=== PATIENT | female | born 1945 | race Caucasian/White ===

== ENCOUNTER → 2017-06-13 | Outpatient (CLI) | payer MEDICARE, OTHER ==
[~2017-06-13] MED LIST: CALC600T57 PO; COUM1TAB17 PO; COUM2.5T17 PO; FISH100049 PO; IBUP200C10 PO; LIPI10TA PO; MULT1TAB15 PO; PANTANASE; PERC5TAB12 PO; SYST1SOL OU; TYLE500T78 PO
--- NOTE | 2017-06-13 09:13 | REPMRS ---
Patient History The patient states she has not had a clinical breast exam in over a year. Patient is postmenopausal and has history of skin cancer at age 62. Family history of colorectal cancer in mother at age 50 or over, breast cancer in maternal aunt at age 50 or over, and colorectal cancer in maternal uncle at age 50 or over. Benign ultrasound-guided FNA biopsy of the left breast, 1999. Benign excisional biopsy of the left breast, 1978. Digital Woman Screen Mammo: June 13, 2017 - Exam #: [id number] Bilateral CC and MLO view(s) were taken. Technologist: Kimberly Crawford, Technologist Prior study comparison: June 12, 2016, digital woman screen mammo performed at [facility]. June 10, 2015, digital woman screen mammo performed at [facility]. FINDINGS: The breast tissue is heterogeneously dense. This may lower the sensitivity of mammography. There has been no change in the appearance of the mammogram from the prior studies. There is a moderate amount of residual fibroglandular tissue which is fairly symmetric. There is no interval development of dominant mass, areas of architectural distortion, or clustered microcalcification typical of malignancy. ASSESSMENT: BI-RADS/ACR category 1 mammogram. Negative. Recommendation Routine screening mammogram in 1 year (for women over age 40). This mammogram was interpreted with the aid of an FDA-approved computer-aided dectection system. Electronically Signed By: Wally Almeida MD 06/13/17 0912
--- NOTE | 2017-06-14 10:39 | DEXA ---
AP SPINE L1 - L4 0.965 -1.9 -0.2 LT FEMUR TOTAL 0.712 -2.3 -0.9 RT FEMUR TOTAL right hip replacement. TOTAL BODY TOTAL OTHER DUAL FEMUR FRAX* ASSESSMENT Risk factors: 10 year probability of fracture Major osteoporotic fracture % Hip fracture % COMMENTS: There is low bone density of the spine. There is low bone density of the left hip. The decreased density of the spine does represent a significant change. The decreased density of the left hip does represent a significant change. The density of the spine has decreased 14.7% since the initial exam on 2001. The spine density has decreased 5.5% since the most recent exam on 06/10/2015. The density of the left hip has decreased 19.6% since the initial exam on 2001. The density of the left hip has decreased 4.9% since the most recent exam on . FOLLOW-UP: Recommendation for the next bone density exam: 2 years. MAYITO
== END ==
LOC: M WHC 07:27
PROVIDERS: ATTEND Family Medicine
DX: Z12.31 Encounter for screening mammogram for malignant neoplasm of breast (principal); M85.80 Other specified disorders of bone density and structure, unspecified site
CPT/HCPCS: 77080; G0202

== ENCOUNTER 2017-07-02 06:59 | Day surgery (SDC) | payer MEDICARE, OTHER ==
[~2017-07-02] VITALS: Ht 152.4 cm; Wt 59.0 kg
[2017-07-02] MEDS ORDERED: LR 1,000 ML IV SCH (08:00)
[2017-07-02] MEDS ORDERED: PROPOFOL 200 MG/20 ML VIAL As Ordered ONE (10:39)
[2017-07-02] MEDS ORDERED: LIDOCAINE 2% INJ 100 MG/5 ML SDV (FOR ANES.) As Ordered ONE (10:39)
--- NOTE | 2017-07-02 11:11 | ROOR ---
Patient Name: Marita Bishop Procedure Date: 07/02/2017 10:32 AM Date of : 1945 Age: 71 Room: [facility] Gender: Female Note Status: Finalized Procedure: Colonoscopy Indications: Colon cancer screening in patient at increased risk: Colorectal cancer in mother, Last colonoscopy: February 2011 Providers: Maurice Longo MD Referring MD: Paxton Gannon MD Requesting Provider: Medicines: Monitored Anesthesia Care Complications: No immediate complications. Procedure: Pre-Anesthesia Assessment: - Prior to the procedure, a History and Physical was performed, and patient medications and allergies were reviewed. The patient is competent. The risks and benefits of the procedure and the sedation options and risks were discussed with the patient. All questions were answered and informed consent was obtained. Patient identification and proposed procedure were verified by the physician, the nurse and the anesthesiologist in the procedure room. Mental Status Examination: alert and oriented. Airway Examination: normal oropharyngeal airway and neck mobility. CV Examination: regular rate and rhythm. Prophylactic Antibiotics: The patient does not require prophylactic antibiotics. Prior Anticoagulants: The patient has taken no previous anticoagulant or antiplatelet agents. ASA Grade Assessment: II - A patient with mild systemic disease. After reviewing the risks and benefits, the patient was deemed in satisfactory condition to undergo the procedure. The anesthesia plan was to use monitored anesthesia care (MAC). Immediately prior to administration of medications, the patient was re-assessed for adequacy to receive sedatives. The heart rate, respiratory rate, oxygen saturations, blood pressure, adequacy of pulmonary ventilation, and response to care were monitored throughout the procedure. The physical status of the patient was re-assessed after the procedure. The Colonoscope was introduced through the anus and advanced to the cecum, identified by appendiceal orifice and ileocecal valve. The colonoscopy was somewhat difficult due to a tortuous colon. The patient tolerated the procedure well. The quality of the bowel preparation was excellent. Findings: The perianal and digital rectal examinations were normal. A 5 mm polyp was found at 20 cm proximal to the anus. The polyp was sessile. The polyp was removed with a hot snare. Resection and retrieval were complete. Impression: - One 5 mm polyp at 20 cm proximal to the anus, removed with a hot snare. Resected and retrieved. Recommendation: - Await pathology results. - Telephone endoscopist for pathology results in 1 week. - Resume previous diet. - Discharge patient to home. Maurice Longo MD 07/02/2017 11:11:29 AM Number of Addenda: 0 Note Initiated On: 07/02/2017 10:32 AM Estimated Blood Loss: Estimated blood loss: none.
[2017-07-02 11:43] VITALS: BP 117/73
== END 2017-07-02 11:47 | disposition home or self-care (01) ==
LOC: M OPP 06:59
PROVIDERS: ATTEND Surgery
DX: Z12.11 Encounter for screening for malignant neoplasm of colon (principal); Z80.0 Family history of malignant neoplasm of digestive organs; D12.6 Benign neoplasm of colon, unspecified; Q43.8 Other specified congenital malformations of intestine; E78.00 Pure hypercholesterolemia, unspecified; Z87.891 Personal history of nicotine dependence; Z85.828 Personal history of other malignant neoplasm of skin; Z79.899 Other long term (current) drug therapy; Z88.5 Allergy status to narcotic agent

== ENCOUNTER → 2018-06-16 | Outpatient (CLI) | payer MEDICARE, OTHER | LOC: M WHC 08:28 | DX: Z12.31 Encounter for screening mammogram for malignant neoplasm of breast (principal); Z78.0 Asymptomatic menopausal state; Z92.89 Personal history of other medical treatment; Z80.0 Family history of malignant neoplasm of digestive organs | CPT/HCPCS: 77067 ==

== ENCOUNTER → 2019-06-16 | Outpatient (CLI) | payer MEDICARE, OTHER ==
[~2019-06-16] MED LIST changes: -IBUP200C10 PO; +IBUP200C25 PO
--- NOTE | 2019-06-16 09:10 | REPMRS ---
Patient History The patient states she has not had a clinical breast exam in over a year. Patient is postmenopausal and has history of other cancer at age 62. Family history of colorectal cancer at age 50 or over in mother, breast cancer at age 50 or over in maternal aunt, colorectal cancer at age 50 or over in maternal uncle. Benign ultrasound-guided FNA biopsy of the left breast, 1999. Benign excisional biopsy of the left breast, 1978. No Hormone Replacement Therapy 3D TOMOSYNTHESIS WAS PERFORMED. The [facility] lifetime risk for breast cancer is 4.9%. Digital Woman Screen Mammo: June 16, 2019 - Exam #: [id number] Bilateral CC and MLO view(s) were taken. Technologist: Lili Lares Technologist Prior study comparison: June 16, 2018, bilateral digital woman screen mammo performed at [facility]. June 13, 2017, digital woman screen mammo performed at [facility]. FINDINGS: The breast tissue is heterogeneously dense. This may lower the sensitivity of mammography. There has been no change in the appearance of the mammogram from the prior studies. There is a moderate amount of residual fibroglandular tissue which is fairly symmetric. There is no interval development of dominant mass, areas of architectural distortion, or clustered microcalcification typical of malignancy. Assessment: BI-RADS/ACR category 1 mammogram. Negative Mammogram. Recommendation Routine screening mammogram in 1 year (for women over age 40). This mammogram was interpreted with the aid of an FDA-approved computer-aided dectection system. Electronically Signed By: Wally Almeida MD 06/16/19 0910
--- NOTE | 2019-06-17 15:37 | DEXA ---
AP SPINE L1 - L4 0.956 -1.9 -0.2 LT FEMUR TOTAL 0.696 -2.5 -0.9 LT NECK 0.677 -2.6 -0.8 RT FEMUR TOTAL RT NECK TOTAL BODY TOTAL OTHER COMMENTS: There is low bone density of the spine. There is osteoporosis of the left hip. The decreased density of the spine does not represent a significant change. The decreased density of the left hip does represent a significant change. The density of the spine has decreased 15.5% since the initial exam on 07/15/2002. The spine density has decreased 0.9% since the most recent exam on 06/13/2017. The density of the left hip has decreased 21.4% since the initial exam on 07/15/2002. The density of the left hip has decreased 2.2% since the most recent exam on 06/13/2017. FOLLOW-UP: Recommendation for the next bone density exam: 2 years. MAYITO
== END ==
LOC: M WHC 07:53
PROVIDERS: ATTEND Family Medicine
DX: Z12.31 Encounter for screening mammogram for malignant neoplasm of breast (principal); M85.80 Other specified disorders of bone density and structure, unspecified site; Z78.0 Asymptomatic menopausal state; Z80.0 Family history of malignant neoplasm of digestive organs; Z80.3 Family history of malignant neoplasm of breast

== ENCOUNTER 2020-05-27 08:38 | Outpatient (CLI) | payer MEDICARE, OTHER ==
[~2020-05-27] VITALS: Ht 152.4 cm; Wt 61.4 kg
[2020-05-27 08:49] VITALS: BP 129/64
[2020-05-27] MEDS: ZOLEDRONIC ACID 5 MG in IV 1 EA IV ONE (10:40)
[2020-05-27 11:45] VITALS: BP 124/83
== END 2020-05-27 10:55 | disposition home or self-care (01) ==
LOC: M INFU 08:38
PROVIDERS: ATTEND Internal Medicine Endocrinology, Diabetes & Metabolism
DX: M81.0 Age-related osteoporosis without current pathological fracture (principal)
CPT/HCPCS: 96365; J3489

== ENCOUNTER → 2020-06-17 | Outpatient (CLI) | payer MEDICARE, OTHER ==
--- NOTE | 2020-06-17 09:07 | REPMRS ---
Patient History The patient states she has not had a clinical breast exam in over a year. Family history of colorectal cancer at age 50 or over in mother, breast cancer at age 50 or over in maternal aunt, colorectal cancer at age 50 or over in maternal uncle. Benign ultrasound-guided FNA biopsy of the left breast, 1999. Benign excisional biopsy of the left breast, 1978. No Hormone Replacement Therapy 3D TOMOSYNTHESIS WAS PERFORMED. The [facility] lifetime risk for breast cancer is 4.6%. Volpara breast density b. Digital Woman Screen Mammo: June 17, 2020 - Exam #: [id number] Bilateral CC and MLO view(s) were taken. Technologist: Romelia Guillen, Technologist Prior study comparison: June 16, 2019, bilateral digital woman screen mammo performed at [facility]. June 16, 2018, bilateral digital woman screen mammo performed at [facility]. FINDINGS: The breast tissue is heterogeneously dense. This may lower the sensitivity of mammography. There has been no change in the appearance of the mammogram from the prior studies. There is a moderate amount of residual fibroglandular tissue which is fairly symmetric. There is no interval development of dominant mass, areas of architectural distortion, or clustered microcalcification typical of malignancy. Assessment: BI-RADS/ACR category 1 mammogram. Negative Mammogram. Recommendation Routine screening mammogram in 1 year (for women over age 40). This mammogram was interpreted with the aid of an FDA-approved computer-aided dectection system. Electronically Signed By: Wally Almeida MD 06/17/20 0906
== END ==
LOC: M WHC 08:18
PROVIDERS: ATTEND Family Medicine
DX: Z12.31 Encounter for screening mammogram for malignant neoplasm of breast (principal); Z80.0 Family history of malignant neoplasm of digestive organs; Z86.018 Personal history of other benign neoplasm

== ENCOUNTER 2021-05-29 14:47 | Outpatient (CLI) | payer MEDICARE, OTHER ==
[~2021-05-29] VITALS: Ht 152.4 cm; Wt 60.5 kg
[2021-05-29] MEDS ORDERED: ZOLEDRONIC ACID 5 MG in IV 1 EA IV ONE (15:00)
[2021-05-29 15:01] VITALS: BP 140/66
[2021-05-29 15:47] VITALS: BP 137/65
== END 2021-05-29 15:40 | disposition home or self-care (01) ==
LOC: M INFU 14:47
PROVIDERS: ATTEND Internal Medicine Endocrinology, Diabetes & Metabolism
DX: M81.0 Age-related osteoporosis without current pathological fracture (principal); Z88.6 Allergy status to analgesic agent
CPT/HCPCS: 96365; J3489

== ENCOUNTER → 2021-06-26 | Outpatient (CLI) | payer MEDICARE, OTHER ==
--- NOTE | 2021-06-26 09:41 | REPMRS ---
Patient History The patient states she has not had a clinical breast exam in over a year. Family history of colorectal cancer at age 50 or over in mother, breast cancer at age 50 or over in maternal aunt, colorectal cancer at age 50 or over in maternal uncle. Benign ultrasound-guided FNA biopsy of the left breast, 1999. Benign excisional biopsy of the left breast, 1978. No Hormone Replacement Therapy Tomosynthesis is performed. Volpara breast density is b. [facility] lifetime risk of breast cancer 4.3%. Digital Woman Screen Mammo: June 26, 2021 - Exam #: [id number] Bilateral CC and MLO view(s) were taken. Technologist: Romelia Guillen, Technologist Prior study comparison: June 17, 2020, bilateral digital woman screen mammo performed at [facility]. June 16, 2019, bilateral digital woman screen mammo performed at [facility]. FINDINGS: The breast tissue is heterogeneously dense. This may lower the sensitivity of mammography. There has been no change in the appearance of the mammogram from the prior studies. There is a moderate amount of residual fibroglandular tissue which is fairly symmetric. There is no interval development of dominant mass, areas of architectural distortion, or clustered microcalcification typical of malignancy. Assessment: BI-RADS/ACR category 1 mammogram. Negative Mammogram. Recommendation Routine screening mammogram in 1 year (for women over age 40). This mammogram was interpreted with the aid of an FDA-approved computer-aided dectection system. Electronically Signed By: Wally Almeida MD 06/26/21 0926
--- NOTE | 2021-06-26 10:52 | DEXAMM ---
INDICATION: OSTEOPOROSIS. COMPARISON: 06/16/2019 as well as other prior exams. TECHNIQUE: Bone density was measured using dual-energy x-ray absorptiometry (DEXA). FINDINGS: AP SPINE L1-L4 BMD 1.006 g/cm2 Young Adult T-Score -1.5 Age Matched Z-Score 0.2. LT FEMUR, TOTAL BMD 0.742 g/cm2 Young Adult T-Score -2.1 Age Matched Z-Score -0.5. LT NECK BMD 0.719 g/cm2 Young Adult T-Score -2.3 Age Matched Z-Score -0.4. IMPRESSION: There is low bone density of the spine. There is low bone density of the left hip. The density of the spine has decreased 11.1% since the initial exam on 07/15/2002. The density of the spine increased 5.2% since most recent exam on 06/16/2019. The density of the left hip has decreased 16.3% since initial exam on 07/15/2002. The density of the left hip has increased 6.6% since most recent exam on 06/16/2019. FOLLOW-UP: Recommendation for the next bone density exam: 2 years. <Electronically signed by Wally Almeida > 06/26/21 1049
== END ==
LOC: M WHC 08:26
PROVIDERS: ATTEND Family Medicine
DX: Z12.31 Encounter for screening mammogram for malignant neoplasm of breast (principal); M81.0 Age-related osteoporosis without current pathological fracture; Z80.0 Family history of malignant neoplasm of digestive organs; Z80.3 Family history of malignant neoplasm of breast; M85.88 Other specified disorders of bone density and structure, other site; M85.852 Other specified disorders of bone density and structure, left thigh

== ENCOUNTER → 2022-03-26 | Outpatient (CLI) | payer MEDICARE, OTHER ==
[~2022-03-26] MED LIST changes: +ACET-897 PO; +ATOR1TAB19 PO; +BIOT1CAP2 PO; +CALCCHW4 PO; +FISH1000 PO; +VITMTA PO
== END ==
LOC: M LABSMTC 09:19
PROVIDERS: ATTEND Anesthesiology
DX: Z01.812 Encounter for preprocedural laboratory examination (principal); Z20.822 Contact with and (suspected) exposure to COVID-19

== ENCOUNTER 2022-03-29 11:34 | Day surgery (SDC) | payer MEDICARE, OTHER ==
[~2022-03-29] VITALS: Ht 152.4 cm; Wt 60.8 kg
[~2022-03-29 11:34] MED LIST changes: +NS 1,000 ML IV ONE
[2022-03-29] MEDS ORDERED: propofoL 200 MG/20 ML VIAL As Ordered ONE ×2 (14:38→14:57)
[2022-03-29 15:45] VITALS: BP 118/58
== END 2022-03-29 15:59 | disposition home or self-care (01) ==
LOC: M OPP 11:34
PROVIDERS: ATTEND Surgery
DX: Z12.11 Encounter for screening for malignant neoplasm of colon (principal); Z86.010 Personal history of colon polyps; Q43.8 Other specified congenital malformations of intestine; E78.5 Hyperlipidemia, unspecified; M19.90 Unspecified osteoarthritis, unspecified site; M85.88 Other specified disorders of bone density and structure, other site; Z85.828 Personal history of other malignant neoplasm of skin; Z87.891 Personal history of nicotine dependence; Z96.641 Presence of right artificial hip joint; Z88.5 Allergy status to narcotic agent; Z79.899 Other long term (current) drug therapy

== ENCOUNTER → 2023-01-11 | Outpatient (CLI) | payer MEDICARE, OTHER ==
[~2023-01-11] MED LIST changes: -NS 1,000 ML IV ONE
== END ==
LOC: M WHC 07:36
PROVIDERS: ATTEND Family Medicine
DX: Z12.31 Encounter for screening mammogram for malignant neoplasm of breast (principal); Z85.828 Personal history of other malignant neoplasm of skin; Z80.0 Family history of malignant neoplasm of digestive organs

== ENCOUNTER → 2023-06-26 | Outpatient (CLI) | payer MEDICARE, OTHER | LOC: M WHC 09:45 | PROVIDERS: ATTEND Family Medicine | DX: M85.89 Other specified disorders of bone density and structure, multiple sites (principal) ==

== ENCOUNTER → 2024-01-14 | Outpatient (CLI) | payer MEDICARE, OTHER | LOC: M WHC 09:59 | PROVIDERS: ATTEND Family Medicine | DX: Z12.31 Encounter for screening mammogram for malignant neoplasm of breast (principal) ==

== ENCOUNTER → 2025-06-08 | Outpatient (REF) | payer MEDICARE, OTHER | LOC: M LAB REF 13:38 | PROVIDERS: ATTEND Family Medicine | DX: E07.9 Disorder of thyroid, unspecified (principal) ==